=== PATIENT | male | born 1985 | race Two or more races ===

== ENCOUNTER → 2021-08-18 | Outpatient (CLI) | payer OTHER ==
--- NOTE | 2021-08-18 14:07 | RAD ---
COMPLETE RENAL ULTRASOUND Indication: Right flank pain. Comparison: None. Procedure: Transabdominal ultrasound images are obtained of the kidneys and bladder. Findings: The kidneys demonstrate normal cortical echotexture. Corticomedullary differentiation is preserved. T here is no hydronephrosis. The right kidney measures 10.3 cm. The left kidney measures 12.1 cm. The urinary bladder appears normal. IMPRESSION: Kidneys are normal in appearance. No hydronephrosis. Electronically signed by: Nahum Kat MD (08/18/2021 2:05 PM) [id number]
== END ==
LOC: US 13:16
PROVIDERS: ATTEND Family Medicine
DX: R10.11 Right upper quadrant pain (principal); R10.9 Unspecified abdominal pain
CPT/HCPCS: 76770

== ENCOUNTER → 2021-08-26 | Outpatient (CLI) | payer OTHER ==
--- NOTE | 2021-08-26 10:54 | RAD ---
EXAM: Abdomen sonogram. HISTORY: Pain. TECHNIQUE: Sonographic imaging of the abdomen was performed. COMPARISON: None. FINDINGS: The liver is normal in size. No focal hepatic lesion is seen. The gallbladder is unremarkab le. The common bile duct is normal in caliber. The right kidney, aorta and inferior vena cava are unr emarkable. The pancreas is obscured due to bowel gas. IMPRESSION: 1. Obscured pancreas due to bowel gas. 2. Otherwise, unremarkable abdomen sonogram. Electronically signed by: Paty Lnid MD (08/26/2021 10:51 AM) [id number]
== END ==
LOC: US 11:21
PROVIDERS: ATTEND Family Medicine
DX: R10.11 Right upper quadrant pain (principal)
CPT/HCPCS: 76705